=== PATIENT | male | born 1955 | race Caucasian/White ===

== ENCOUNTER → 2018-10-02 | Outpatient (CLI) | END | disposition home or self-care (01) ==

== ENCOUNTER → 2019-03-19 | Outpatient (CLI) | payer MEDICARE, OTHER ==
[~2019-03-19] MED LIST: ASPI-903 PO; COLE3.753 PO; METF-849 PO; [UNRECOGNIZED DRUG - REMARK]
--- NOTE | 2019-03-20 17:26 | RADRPT ---
Vent Rate: 67 bpm RR Interval: 900 msec HI Interval: 150 msec QRS Duration: 86 msec QT Interval: 380 msec QTC Interval: 401 msec P-R-T [place]: 39 - -2 - 59 degrees Sinus rhythm. Electronically Signed By: Fabian Luna
== END | disposition home or self-care (01) ==
LOC: LAB 11:42
PROVIDERS: ATTEND Internal Medicine Nephrology
DX: H26.9 Unspecified cataract (principal)
CPT/HCPCS: 71045; 80053; 80061; 82043; 83036; 85025; 85610; 85730; 93005